=== PATIENT | male | born 1985 | race Hispanic/Latino ===

== ENCOUNTER 2016-08-09 17:03 | Emergency (ER) | payer SELFPAY ==
[~2016-08-09] VITALS: Ht 177.8 cm; Wt 70.5 kg
[2016-08-09 17:05] VITALS: BP 139/92; PULSE 121; RESP 16; O2SAT 99
--- NOTE | 2016-08-09 17:35 | ED.REPORT ---
HPI-Extremity Problem Lower Date of Service Aug 09, 2016 ED Provider: Brian Traylor PA-C [place] is an otherwise healthy but homeless 31-year-old male presenting with chief complaint of bilateral foot pain. Patient reports pain across the palms of both his feet, worsened by walking. Pain is worst over the ball of feet and toes. Patient reports walking on his heels. Patient reports that he has been sleeping in his shoes quite often which are sometimes wet. He does not have socks. He threw away his shoes today and has been wearing flip-flops. Denies trauma, fever, diabetes. Admits methamphetamine use "maybe this morning". Nursing Notes Stated Complaint: FOOT PAIN Chief Complaint: Extremity Trauma Nursing Notes Reviewed: Yes Allergies: Coded Allergies: No Known Allergies (Unverified , 08/09/16) No Active Prescriptions or Reported Meds General Time Seen by MD: 17:21 Chief Complaint Other (bilateral foot pain) Past Medical History Past Medical History Denies Denies: Diabetes mellitus Review of Systems Review of Systems Note: Negative unless stated otherwise in history of present illness Physical Exam General: Well appearing, well developed, well nourished, no acute distress. Quite disheveled, malodorous. Feet: BP and PT pulses 2+ bilaterally. Brisk capillary refill and distal phalanges. Plantar surface of the ball the foot as well as all toes excoriated. Head: Atraumatic, normocephalic. Eyes: No scleral icterus or injection. No discharge. Vision grossly intact. ENT: Voice clear, hearing grossly intact. Cardiac regular: Heart rate 120, measured at dorsalis pedis. Respiratory: No respiratory distress, no increased work of breathing. Speaks in complete sentences. Skin: Warm and dry. Neurological: Grossly nonfocal. Psychological: alert and oriented. Speech appropriate, linear and logical. Behavior appropriate. Initial Vital Signs Vital Signs (First) Date Time Temp Pulse Resp B/P Pulse Ox O2 Delivery O2 Flow Rate FiO2 08/09/16 17:05 36.2 121 16 139/92 99 Room Air Initial VS: Vital signs abnormal (tachycardia) Re-Eval/Medical Decision Med Decision/Clinical Course 31-year-old homeless male presented with chief complaint of bilateral foot pain , reports wearing wet shoes without socks often sleeping in them. Examination reveals excoriation on the bilateral plantar surfaces of the forefoot and phalanges. No evidence of cellulitis, pulses and sensation intact. Advised keeping the feet clean and dry, walking as little as possible. I discussed case with , who met with and examined the patient. We believe stabilization discharged. Discussed wound care, provided primary care referral , discussed emergent return precautions and [id number] analgesia. Patient verbalizes understanding of and consent to the plan. Tachycardias noted both during triage and examination. I also note some paranoid speech. I believe these are most likely secondary to methamphetamine use and do not find him to be gravely disabled. Discharge & Departure Impression: Primary Impression: Excoriation Disposition: Home Discharge Condition All VS Reviewed: Yes Condition: Stable Additional Instructions: Evaluation for foot pain emergency department with history and physical examination, both of which are reassuring that this is unlikely to be caused by an immediately dangerous condition such as an infection. I believe this is simply damaged her skin from being exposed to the elements too much. It will be very important to keep your feet dry, clean and protected while this heals. Wear flip-flops for the next several days and try to avoid walking as much as possible. I will give you a couple of pairs of socks. Wear socks at night to protect the skin of your feet. Get a good pair of shoes and more socks as soon as possible. The pain is best treated with 400 mg of ibuprofen (Advil, Motrin) every 6 hours , or 1000 mg of acetaminophen (Tylenol) every 6 hours. These drugs can be taken at the same time for more severe pain. I did continue a referral for primary care follow-up. Please contact them if this is not resolving in a week or so. Return to emergency department for new or worsening symptoms including increasing pain, redness, swelling. Referrals: [facility] Provider for APC: Mei Richards MD, Seth PA-C Aug 09, 2016 17:35
== END 2016-08-09 18:19 | disposition home or self-care (01) ==
LOC: SED 17:03
DX: F42.4 Excoriation (skin-picking) disorder (principal); Z59.0 Homelessness